=== PATIENT | female | born 1965 | race Caucasian/White ===

== ENCOUNTER → 2016-04-18 | Outpatient (CLI) | payer MEDICARE ==
[~2016-04-18] MED LIST: /WARF5TA PO; /WARF5TAB PO; ACET250C PO; ACET500C8 PO; ACID1CAP PO; ASPI81CH3 PO; CALC500T36 PO; CALC500T49 OR; CETI10TA PO; CETI10TA3 PO; CITRIZINE PO; CO Q100C10 PO; COUM1TAB17 PO; COUM7.5T PO; CYCL10TA PO; DIOV80TA3 PO; FERR325T3 PO; HYDR-3713 PO; LIDO1OIN2 TOP; LORA0.5T OR; LOSA25TA8 PO; LOVE0.4I2 SC; MAGN250T OR; MAGN500C PO; MELO7.5T6 PO; NATU400T PO; NORE0.353 PO; OXYC1TAB23 PO; POTA595T8 PO; POTA95TA PO; POTA99TA OR; PROG100C PO; PROP160C OR; PROP80TA PO; REQU0.5T PO; RIBO100C PO; SKEL800T5 OR; TIZA2CAP3 PO; TIZA4TAB OR; TRAM50TA2 PO; TRAZ50TA4 PO; ULTR50TA PO; VITA25TA3 OR; VITAMIN B COMPLE1 OR; VITATAB11 PO; VOLT1GEL2 TD; WARF1TAB OR; [UNRECOGNIZED DRUG - OTHER] PO; melatonin PO; propanolol PO; propranolol PO; vicodin PO; vitamin d3 PO
--- NOTE | 2016-05-11 00:26 | ECWPNPC ---
PATIENT NAME: KASIA CADE : 1965 GENDER: FEMALE VISIT DATE: 04/18/2016 DISCHARGE DATE: 04/18/16 1301 VISIT LOCKED DATE TIME: PHYSICIAN: MARBELLA MYERS RESOURCE: MARBELLA MYERS REASON FOR APPOINTMENT 1. FIBRO HISTORY OF PRESENT ILLNESS HISTORY OF PRESENT ILLNESS: PAIN THE PATIENT DESCRIBES THE PAIN... FALL RISK SCREENING: SCREENING :NO FALLS IN THE PAST YEAR TODAY'S VISIT: NOTES: S/P D/C ON 03/17/17. HAD SIGNIFICANT PAIN AFTER PROCEDURE. WAS GIVEN PERCOCET WHICH WAS VERY HELPFUL. HURTS EVERYWHERE. RATES OVERALL PAIN TODAY 8/10. DESCRIBES PAIN CONSTANT, ACHING, BURNING, SHARP, STABBING TENDER SORE AND SHOOTING. . CURRENT MEDICATIONS TAKING ACIDOPHILUS CAPSULE ORALLY DAILY TAKING VITAMIN E 1000 UNIT CAPSULE 1 CAPSULE ORALLY ONCE A DAY TAKING CETIRIZINE HCL 10 MG TABLET 1 TABLET NEEDED ORALLY ONCE A DAY TAKING CALCIUM 1250 MG TABLET 1 TABLET ORALLY ONCE A DAY TAKING LOSARTAN POTASSIUM 50 MG TABLET 1 TABLET ORALLY ONCE DAILY TAKING LIDOCAINE 5 % OINTMENT 1 APPLICATION TO AFFECTED AREA NEEDED EXTERNALLY EVERY 6 HOURS TAKING MAGNESIUM 500 MG TABLET 1 TABLET WITH A MEAL ORALLY BID TAKING POTASSIUM GLUCONATE 595 MG TABLET ORALLY ONCE A DAY TAKING WARFARIN SODIUM 5 MG TABLET 1 TABLET ORALLY 4 TIMES WEEKLY TAKING MELATONIN 10 MG CAPSULE 1 TABLET AT BEDTIME NEEDED WITH FOOD ORALLY ONCE A DAY TAKING PROPRANOLOL HCL 10 MG TABLET 1 TABLET ORALLY TWICE A DAY TAKING VOLTAREN 1 % GEL 2 GRAMS TRANSDERMAL DIRECTED TAKING PLAQUENIL 200 MG TABLET 1 TABLET WITH FOOD OR MILK ORALLY BID TAKING FISH OIL 1000 MG CAPSULE DELAYED RELEASE 1 CAPSULE ORALLY TWICE A DAY TAKING LYSINE 500 MG TABLET ORALLY ONCE DAILY TAKING ROPINIROLE HCL 0.5 MG TABLET 2 ORALLY QHS TAKING NEXIUM 20 MG CAPSULE DELAYED RELEASE 1 CAPSULE ORALLY ONCE A DAY TAKING MELOXICAM 7.5 MG TABLET 1 TABLET ORALLY ONCE A DAY TAKING GEORGE 500 MG CAPSULE ORALLY DAILY TAKING NORCO 5-325 MG TABLET 1 TABLET NEEDED ORALLY EVERY 6 HRS MDD = 3 TAKING FENTANYL 12 MCG/HR PATCH 72 HOUR 1 PATCH TO SKIN TRANSDERMAL EVERY 72 HOURS MDD=1 TAKING TRAZODONE HCL 100 MG TABLET 1 TABLET AT BEDTIME NEEDED ORALLY BEFORE BEDTIME TAKING TRAMADOL HCL 50 MG TABLET 1-2 TABLET NEEDED ORALLY EVERY 4 HOURS NEEDED MDD6 TAKING WARFARIN SODIUM 7.5 MG TABLET 1 TABLET ORALLY 3 TIMES A WEEK TAKING TURMERIC 450 MG CAPSULE ORALLY DAILY TAKING TART QUIROZ ADVANCED - CAPSULE ORALLY NOT-TAKING ACETYL L-CARNITINE 400 MG CAPSULE 1 CAPSULE ORALLY ONCE A DAY NOT-TAKING VITAMIN B-COMPLEX TABLET ORALLY DAILY MEDICATION LIST REVIEWED AND RECONCILED WITH THE PATIENT PAST MEDICAL HISTORY ANXIETY FIBROMYALGIA GERD VITAMIN D DEFICIENCY AORTIC REGURGITATION- POST VALVE REPLACEMENT MIGRAINE HEADACHES HTN ALLERGIES PENICILLIN (FOR ALLERGIES USE ONLY): RASH: ALLERGY KEPPRA: NAUSEA/VOMITING: ALLERGY SURGICAL HISTORY 05/2005 AORTIC VALVE REPLACEMENT-MECHANICAL 01/2010 LAPROSCOPY CHOLECYSTECTOMY D & C 2013 TONSILLECTOMY WISDOM TEETH REMOVAL CARPAL TUNNEL BOTH WRISTS COLONOSCOPY- NORMAL 2013 D & C 03/2016 SOCIAL HISTORY GENERAL: TOBACCO USE ARE YOU A:NONSMOKER LEARNING BARRIERS / SPECIAL NEEDS ORIENTED TO PLAN OF CARE: PATIENT, PAIN MANAGEMENT PATIENT, ORIENTED TO PLAN OF CARE: PATIENT, PAIN MANAGEMENT PATIENT. NEW PATIENT PAIN DIARY TODAY'S VISITNOTES FROM 0-10, WHAT LEVEL IS YOUR PAIN TODAY?0 PAIN CLINIC PFS, CLERGY, PUBLIC HEALTH REFERRALS PFS REFERRAL NEEDED?NO CLERGY REFERRAL NEEDED?NO PUBLIC HEALTH REFERRAL NEEDED?NO WAS THE PROVIDER NOTIFIED OF ANY PERTINENT INFO?NO PFS REFERRAL NEEDED?NO CLERGY REFERRAL NEEDED?NO PUBLIC HEALTH REFERRAL NEEDED?NO WAS THE PROVIDER NOTIFIED OF ANY PERTINENT INFO?NO HOSPITALIZATION/MAJOR DIAGNOSTIC PROCEDURE RELATED TO SURGERY AND CHILDBIRTH REVIEW OF SYSTEMS CONSTITUTIONAL: ANY CHANGE IN YOUR MEDICAL CONDITION? NO . CHILLS NO . FEVER NO . INFECTION: DO YOU HAVE NEW INFECTIONS? NO . DO YOU HAVE HISTORY OF MRSA? NO . MUSCULOSKELETAL: ANY NEW PATTERNS OF PAIN OR NUMBNESS? NO . GASTROENTEROLOGY: ANY NEW CHANGE IN BOWEL CONTROL? NO . GENITOURINARY: ANY NEW CHANGE IN BLADDER CONTROL? NO . IS THERE A CHANCE YOU COULD BE ? NO . HEMATOLOGY/LYMPH: DO YOU TAKE ANY BLOOD THINNERS? (FOR EXAMPLE- COUMADIN, PLAVIX, AGGRENOX, PLATEL, PRADAXA, OR XARELTO) YES . WHEN WAS YOUR LAST DOSE? DATE: TIME: . NEUROLOGY: HAVE YOU FALLEN IN THE PAST 6 MONTHS? NO . ANY NEW EXTREMITY NUMBNESS OR WEAKNESS? NO . CARDIOLOGY: DO YOU HAVE A PACEMAKER OR DEFIBRILLATOR? NO . CHEST PAIN NONE RECENT. FOLLOWS WITH CARDIOLOGY FOR VALVE REPLACEMENT . RESPIRATORY: HAVE YOU BEEN SICK IN THE PAST WEEK? NO . FEVER NO . FLU LIKE SYMPTOMS? NO . COUGH NO . INTEGUMENTARY: DO YOU HAVE ANY RASHES OR OPEN SORES? NO . ALLERGIC/IMMUNO: ARE YOU ALLERGIC TO SHELLFISH OR IV DYE? NO . ANY NEW ALLERGIES? NO . PSYCHIATRIC: DO YOU HAVE THOUGHTS OF HURTING YOURSELF OR SOMEONE ELSE? NO . ARE YOU ABUSED, NEGLECTED, OR IN AN UNSAFE ENVIRONMENT? NO . ENDOCRINOLOGY: ARE YOU DIABETIC? NO . OTHER: DO YOU NEED ANY PRESCRIPTIONS? NO . IF YES, PLEASE LIST: ____ . ANY NEW PROBLEMS WITH YOUR MEDICATIONS? NO . WHEN DID YOU LAST EAT? ____ . WHEN DID YOU LAST DRINK? ____ . WHAT DID YOU LAST DRINK? ____ . NAME OF PERSON DRIVING YOU HOME? ____ . DO YOU HAVE ANY OTHER QUESTIONS OR CONCERNS NO . REVIEWED BY: PROVIDER: MARBELLA GUERRERO . VITAL SIGNS WT 145 LBS, HT 5'4", BMI 24.89 INDEX, BP 90/63 MM HG, HR 60 /MIN, RR 16 /MIN, TEMP 98.0 F, OXYGEN SAT % 98%, NA INITIALS SC 12:00, REVIEWED BY: LSRN IS AWARE OF PT"S BP. EXAMINATION GENERAL EXAMINATION: PSYCHALERT , ORIENTED X 3 , APPROPRIATE MOOD AND AFFECT . HEART:VALVE CLICK. , HEART RATE REGULAR. MUSCULOSKELETAL:MUSCLE STRENGTH TESTING 5/5 BILATERAL UPPER AND LOWER EXTREMITIES, TRIGGER POINTS:, ELICITED WITH PALPATION OVER CERVICAL SPINOUS PROCESSES AND ACROSS THE TRAPEZIUS MUSCLES BILATERALLY. RESTRICTION OF ROM IS NOTED. . ASSESSMENTS FIBROMYALGIA - M79.7 (PRIMARY) CHRONICALLY ON OPIATE THERAPY - Z79.899 TREATMENT FIBROMYALGIA STOP NORCO TABLET, 5-325 MG, 1 TABLET NEEDED, ORALLY, EVERY 6 HRS MDD = 3 START PERCOCET TABLET, 5-325 MG, 1 TABLET NEEDED, ORALLY, EVERY 6-8 HRS PRN PAIN MDD=3, 30 DAY(S), 90, REFILLS 0 NOTES: UTOX TODAY. PROCEDURE CODES FA211 ESTABILISHED PATIENT [facility] CHARGE FOLLOW UP 7 WEEKS ELECTRONICALLY SIGNED BY PATTI TEJEDA ON 05/10/2016 AT 12:35 PM EST DISCLAIMER : THIS IS A VISIT SUMMARY EXTRACTED FROM THE [employer] CHART. IT IS NOT A COPY OF THE [employer] PROGRESS NOTE. MTDD
== END ==
LOC: M PAIN 11:40
PROVIDERS: ATTEND Nurse Practitioner Family
DX: Z09 Encounter for follow-up examination after completed treatment for conditions other than malignant neoplasm (principal); G89.29 Other chronic pain; M79.7 Fibromyalgia; K21.9 Gastro-esophageal reflux disease without esophagitis; E55.9 Vitamin D deficiency, unspecified; G43.909 Migraine, unspecified, not intractable, without status migrainosus; I10 Essential (primary) hypertension; F41.9 Anxiety disorder, unspecified; Z88.0 Allergy status to penicillin; Z88.8 Allergy status to other drugs, medicaments and biological substances; Z79.01 Long term (current) use of anticoagulants; Z79.891 Long term (current) use of opiate analgesic; Z79.899 Other long term (current) drug therapy; Z95.2 Presence of prosthetic heart valve

== ENCOUNTER → 2016-06-15 | Outpatient (CLI) | payer MEDICARE ==
--- NOTE | 2016-06-20 00:11 | ECWPNPC ---
PATIENT NAME: KASIA CADE : 1965 GENDER: FEMALE VISIT DATE: 06/15/2016 DISCHARGE DATE: 06/15/16 1207 VISIT LOCKED DATE TIME: PHYSICIAN: MARBELLA MYERS RESOURCE: MARBELLA MYERS REASON FOR APPOINTMENT 1. FOLLOWUP-CHRONIC PAIN HISTORY OF PRESENT ILLNESS HISTORY OF PRESENT ILLNESS: PAIN THE PATIENT DESCRIBES THE PAIN... FALL RISK SCREENING: SCREENING :NO FALLS IN THE PAST YEAR TODAY'S VISIT: NOTES: RATES PAIN 8-9/10. DESCRIBES PAIN CONSTANT, ACHING, BURNING TENDER, THROBBING AND SORE. HAS NEW AREA OF PAIN OVER EARS. HAS BEEN EXPERIENCING PERSISTANT MIGRAINES . CURRENT MEDICATIONS TAKING ACIDOPHILUS CAPSULE ORALLY DAILY TAKING VITAMIN E 1000 UNIT CAPSULE 1 CAPSULE ORALLY ONCE A DAY TAKING CETIRIZINE HCL 10 MG TABLET 1 TABLET NEEDED ORALLY ONCE A DAY TAKING CALCIUM 1250 MG TABLET 1 TABLET ORALLY ONCE A DAY TAKING LOSARTAN POTASSIUM 50 MG TABLET 1 TABLET ORALLY ONCE DAILY TAKING LIDOCAINE 5 % OINTMENT 1 APPLICATION TO AFFECTED AREA NEEDED EXTERNALLY EVERY 6 HOURS TAKING MAGNESIUM 500 MG TABLET 1 TABLET WITH A MEAL ORALLY BID TAKING POTASSIUM GLUCONATE 595 MG TABLET ORALLY ONCE A DAY TAKING WARFARIN SODIUM 5 MG TABLET 1 TABLET ORALLY 4 TIMES WEEKLY TAKING MELATONIN 10 MG CAPSULE 1 TABLET AT BEDTIME NEEDED WITH FOOD ORALLY ONCE A DAY TAKING PROPRANOLOL HCL 10 MG TABLET 1 TABLET ORALLY TWICE A DAY TAKING VOLTAREN 1 % GEL 2 GRAMS TRANSDERMAL DIRECTED TAKING FISH OIL 1000 MG CAPSULE DELAYED RELEASE 1 CAPSULE ORALLY TWICE A DAY TAKING LYSINE 500 MG TABLET ORALLY ONCE DAILY TAKING ROPINIROLE HCL 0.5 MG TABLET 2 ORALLY QHS TAKING NEXIUM 20 MG CAPSULE DELAYED RELEASE 1 CAPSULE ORALLY ONCE A DAY TAKING MELOXICAM 7.5 MG TABLET 1 TABLET ORALLY ONCE A DAY TAKING GEORGE 500 MG CAPSULE ORALLY DAILY TAKING TRAZODONE HCL 100 MG TABLET 1 TABLET AT BEDTIME NEEDED ORALLY BEFORE BEDTIME TAKING TRAMADOL HCL 50 MG TABLET 1-2 TABLET NEEDED ORALLY EVERY 4 HOURS NEEDED MDD6 TAKING WARFARIN SODIUM 7.5 MG TABLET 1 TABLET ORALLY 3 TIMES A WEEK TAKING TURMERIC 450 MG CAPSULE ORALLY DAILY TAKING TART QUIROZ ADVANCED - CAPSULE ORALLY TAKING PERCOCET 5-325 MG TABLET 1 TABLET NEEDED ORALLY EVERY 6-8 HRS PRN PAIN MDD=3 TAKING FENTANYL 12 MCG/HR PATCH 72 HOUR 1 PATCH TO SKIN TRANSDERMAL EVERY 72 HOURS MDD=1 NOT-TAKING ACETYL L-CARNITINE 400 MG CAPSULE 1 CAPSULE ORALLY ONCE A DAY NOT-TAKING VITAMIN B-COMPLEX TABLET ORALLY DAILY DISCONTINUED DOXYCYCLINE MONOHYDRATE 100 MG TABLET 1 TABLET ORALLY EVERY 12 HRS MEDICATION LIST REVIEWED AND RECONCILED WITH THE PATIENT PAST MEDICAL HISTORY ANXIETY FIBROMYALGIA GERD VITAMIN D DEFICIENCY AORTIC REGURGITATION- POST VALVE REPLACEMENT MIGRAINE HEADACHES HTN ALLERGIES PENICILLIN (FOR ALLERGIES USE ONLY): RASH: ALLERGY KEPPRA: NAUSEA/VOMITING: ALLERGY SOCIAL HISTORY GENERAL: TOBACCO USE ARE YOU A:NONSMOKER LEARNING BARRIERS / SPECIAL NEEDS ORIENTED TO PLAN OF CARE: PATIENT, PAIN MANAGEMENT PATIENT, ORIENTED TO PLAN OF CARE: PATIENT, PAIN MANAGEMENT PATIENT. NEW PATIENT PAIN DIARY TODAY'S VISITNOTES FROM 0-10, WHAT LEVEL IS YOUR PAIN TODAY?0 PAIN CLINIC PFS, CLERGY, PUBLIC HEALTH REFERRALS PFS REFERRAL NEEDED?NO CLERGY REFERRAL NEEDED?NO PUBLIC HEALTH REFERRAL NEEDED?NO WAS THE PROVIDER NOTIFIED OF ANY PERTINENT INFO?NO PFS REFERRAL NEEDED?NO CLERGY REFERRAL NEEDED?NO PUBLIC HEALTH REFERRAL NEEDED?NO WAS THE PROVIDER NOTIFIED OF ANY PERTINENT INFO?NO REVIEW OF SYSTEMS CONSTITUTIONAL: ANY CHANGE IN YOUR MEDICAL CONDITION? NO . CHILLS NO . FEVER NO . INFECTION: DO YOU HAVE NEW INFECTIONS? NO . DO YOU HAVE HISTORY OF MRSA? NO . MUSCULOSKELETAL: ANY NEW PATTERNS OF PAIN OR NUMBNESS? NO . GASTROENTEROLOGY: ANY NEW CHANGE IN BOWEL CONTROL? NO . GENITOURINARY: ANY NEW CHANGE IN BLADDER CONTROL? NO . IS THERE A CHANCE YOU COULD BE ? NO . HEMATOLOGY/LYMPH: DO YOU TAKE ANY BLOOD THINNERS? (FOR EXAMPLE- COUMADIN, PLAVIX, AGGRENOX, PLATEL, PRADAXA, OR XARELTO) YES, COUMADIN 5MG . WHEN WAS YOUR LAST DOSE? DATE: TIME: [id number] . NEUROLOGY: HAVE YOU FALLEN IN THE PAST 6 MONTHS? NO . ANY NEW EXTREMITY NUMBNESS OR WEAKNESS? NO . CARDIOLOGY: DO YOU HAVE A PACEMAKER OR DEFIBRILLATOR? NO . RESPIRATORY: HAVE YOU BEEN SICK IN THE PAST WEEK? NO - DID HAVE RECENT BRONCHITIS . FEVER NO . FLU LIKE SYMPTOMS? NO . COUGH NO . INTEGUMENTARY: DO YOU HAVE ANY RASHES OR OPEN SORES? NO . ALLERGIC/IMMUNO: ARE YOU ALLERGIC TO SHELLFISH OR IV DYE? NO . ANY NEW ALLERGIES? NO . PSYCHIATRIC: DO YOU HAVE THOUGHTS OF HURTING YOURSELF OR SOMEONE ELSE? NO . ARE YOU ABUSED, NEGLECTED, OR IN AN UNSAFE ENVIRONMENT? NO . ENDOCRINOLOGY: ARE YOU DIABETIC? NO . OTHER: DO YOU NEED ANY PRESCRIPTIONS? NO . IF YES, PLEASE LIST: ____ . ANY NEW PROBLEMS WITH YOUR MEDICATIONS? NO . WHEN DID YOU LAST EAT? ____ . WHEN DID YOU LAST DRINK? ____ . WHAT DID YOU LAST DRINK? ____ . NAME OF PERSON DRIVING YOU HOME? ____ . DO YOU HAVE ANY OTHER QUESTIONS OR CONCERNS NO . REVIEWED BY: PROVIDER: MARBELLA GUERRERO . VITAL SIGNS WT 145 LBS, HT 5'4", BMI 24.89 INDEX, BP 120/72 MM HG, HR 66 /MIN, RR 16 /MIN, TEMP 97.9 F, OXYGEN SAT % 97%, NA INITIALS SC 11:18, REVIEWED BY: CM. EXAMINATION GENERAL EXAMINATION: PSYCHALERT , ORIENTED X 3 , APPROPRIATE MOOD AND AFFECT . HEART:VALVE CLICK. , HEART RATE REGULAR. MUSCULOSKELETAL:MUSCLE STRENGTH TESTING 5/5 BILATERAL UPPER AND LOWER EXTREMITIES, TRIGGER POINTS:, ELICITED WITH PALPATION OVER CERVICAL SPINOUS PROCESSES AND ACROSS THE TRAPEZIUS MUSCLES BILATERALLY. RESTRICTION OF ROM IS NOTED. TENDER POINTS ELICITED ABOVE AND BELOW THE WAIST, BOTH SIDES OF THE BODY, CONSISTANT WITH FIBROMYALGIA. ASSESSMENTS FIBROMYALGIA - M79.7 (PRIMARY) MYALGIA - M79.1 TREATMENT FIBROMYALGIA REFILL PERCOCET TABLET, 5-325 MG, 1 TABLET NEEDED, ORALLY, EVERY 6-8 HRS PRN PAIN MDD=3, 30 DAY(S), 90, REFILLS 0 REFILL FENTANYL PATCH 72 HOUR, 12 MCG/HR, 1 PATCH TO SKIN, TRANSDERMAL, EVERY 72 HOURS MDD=1, 30 DAY(S), 10, REFILLS 0 NOTES: CONTINUE CURRENT MEDS. CONTINUE HEAT, STRETCHES AND WALKING TOLERATED. CLINICAL NOTES: ISTOP REGISTRY REVIEWED AND DEMNOSTRATES COMPLLIANCE. BRINGS IN MEDICATIONS WHICH IS APPROPRIATE FOR WHAT WAS DISPENSED. RECENT URINE TOXICOLOGY REVIEWED. NO UNAUTHORIZED MEDICATIONS. NO ILLICIT SUBSTANCES AND PRESCRIBED MEDICATIONS WERE PRESENT. PROCEDURE CODES FA211 ESTABILISHED PATIENT [facility] CHARGE Z2712 NO DOCUMENTATION OF PAIN ASSESSMENT G4710 PAIN ASSESS POS TOOL F/U PLAN DOC 3016F PT SCRND UNHLTHY OH USE 1124F ACP DISCUSS-NO DSCNMKR DOCD G3509 DOC PAIN ASSESS NO DOC F/U PLAN RNS 1036F TOBACCO NON-USER G8427 DOC MEDS VERIFIED W/PT OR RE G8420 BMI<30 AND >=22 CALC & DOCU 3288F FALL RISK ASSESSMENT DOCD DISPOSITION & COMMUNICATION FOLLOW UP 3 MONTHS ELECTRONICALLY SIGNED BY PATTI TEJEDA ON 06/19/2016 AT 09:57 AM EDT DISCLAIMER : THIS IS A VISIT SUMMARY EXTRACTED FROM THE [employer] CHART. IT IS NOT A COPY OF THE [employer] PROGRESS NOTE. MTDD
== END ==
LOC: M PAIN 11:00
PROVIDERS: ATTEND Nurse Practitioner Family
DX: Z09 Encounter for follow-up examination after completed treatment for conditions other than malignant neoplasm (principal); G89.29 Other chronic pain; M79.7 Fibromyalgia; I10 Essential (primary) hypertension; F41.9 Anxiety disorder, unspecified; K21.9 Gastro-esophageal reflux disease without esophagitis; E55.9 Vitamin D deficiency, unspecified; G43.909 Migraine, unspecified, not intractable, without status migrainosus; Z88.0 Allergy status to penicillin; Z88.8 Allergy status to other drugs, medicaments and biological substances; Z79.01 Long term (current) use of anticoagulants; Z79.891 Long term (current) use of opiate analgesic; Z79.899 Other long term (current) drug therapy; Z95.2 Presence of prosthetic heart valve

== ENCOUNTER → 2016-09-15 | Outpatient (CLI) | payer MEDICARE, MEDICAID ==
[~2016-09-15] MED LIST changes: +COUM2.5T17 PO; +ESOM0.1C PO; +FISH1000 PO; +FOLI1TAB4 PO; +GING500C3 PO; +LYSI500T PO; -MELO7.5T6 PO; +MELO7.5T7 PO; +METH2.5TA PO; +ONDA4TAB6 PO; +PROP10TA56 PO; -REQU0.5T PO; +REQU1TAB15 PO; +TRAZ50TA11 PO; -TRAZ50TA4 PO; +TURM500C3 PO; +VITA500T3 PO
--- NOTE | 2016-09-30 01:02 | ECWPNPC ---
PATIENT NAME: KASIA CADE : 1965 GENDER: FEMALE VISIT DATE: 09/15/2016 DISCHARGE DATE: 09/15/16 1226 VISIT LOCKED DATE TIME: PHYSICIAN: MARBELLA MYERS RESOURCE: MARBELLA MYERS REASON FOR APPOINTMENT 1. FOLLOWUP-CHRONIC PAIN HISTORY OF PRESENT ILLNESS HISTORY OF PRESENT ILLNESS: PAIN THE PATIENT DESCRIBES THE PAIN... THE PATIENT DESCRIBES THE PAIN... PAIN THE PATIENT DESCRIBES THE PAIN... THE PATIENT DESCRIBES THE PAIN... FALL RISK SCREENING: SCREENING :NO FALLS IN THE PAST YEAR :NO FALLS IN THE PAST YEAR SCREENING :NO FALLS IN THE PAST YEAR :NO FALLS IN THE PAST YEAR TODAY'S VISIT: NOTES: RATES PAIN TODAY 7.5/10. 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 IS WALKING ABOUT 2 M/DAY BUT NOT WORK DAYS. HAS STARTED ON METHOTREXATE FOR RA/LUPUS. 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 HAS BEEN HAVING SWELLING IN JOINTS OF HANDS, BEHIND KNEES AND IN GROIN. . CURRENT MEDICATIONS TAKING ACIDOPHILUS CAPSULE ORALLY DAILY TAKING VITAMIN E 400 UNIT CAPSULE 1 CAPSULE ORALLY ONCE A DAY TAKING CETIRIZINE HCL 10 MG TABLET 1 TABLET NEEDED ORALLY ONCE A DAY TAKING CALCIUM 1250 MG TABLET 1 TABLET ORALLY ONCE A DAY TAKING LOSARTAN POTASSIUM 50 MG TABLET 1 TABLET ORALLY ONCE DAILY TAKING LIDOCAINE 5 % OINTMENT 1 APPLICATION TO AFFECTED AREA NEEDED EXTERNALLY EVERY 6 HOURS TAKING MAGNESIUM 400 MG TABLET 1 TABLET WITH A MEAL ORALLY BID TAKING WARFARIN SODIUM 5 MG TABLET 1 TABLET ORALLY ONCE A DAY TAKING MELATONIN 10 MG CAPSULE 1 TABLET AT BEDTIME NEEDED WITH FOOD ORALLY ONCE A DAY TAKING PROPRANOLOL HCL 10 MG TABLET 1 TABLET ORALLY TWICE A DAY TAKING VOLTAREN 1 % GEL 2 GRAMS TRANSDERMAL DIRECTED TAKING FISH OIL 1000 MG CAPSULE DELAYED RELEASE 1 CAPSULE ORALLY TWICE A DAY TAKING LYSINE 500 MG TABLET ORALLY TWICE DAILY TAKING NEXIUM 20 MG CAPSULE DELAYED RELEASE 1 CAPSULE ORALLY ONCE A DAY TAKING MELOXICAM 15 MG TABLET 1 TABLET ORALLY ONCE A DAY TAKING GEORGE 500 MG CAPSULE ORALLY DAILY TAKING TRAZODONE HCL 100 MG TABLET 1/2 OR 1 TABLET AT BEDTIME NEEDED ORALLY BEFORE BEDTIME TAKING TURMERIC 450 MG CAPSULE ORALLY TWICE DAILY TAKING TART QUIROZ ADVANCED - CAPSULE ORALLY TWICE A DAY TAKING ROPINIROLE HCL 0.5 MG TABLET 2 ORALLY QHS TAKING FENTANYL 12 MCG/HR PATCH 72 HOUR 1 PATCH TO SKIN TRANSDERMAL EVERY 72 HOURS MDD=1 TAKING PERCOCET 5-325 MG TABLET 1 TABLET NEEDED ORALLY EVERY 6-8 HRS PRN PAIN MDD=3 TAKING TRAMADOL HCL 50 MG TABLET 1-2 TABLET NEEDED ORALLY EVERY 4 HOURS NEEDED MDD6 TAKING POTASSIUM 1 TAB 99 MG ORAL DAILY TAKING EVENING PRIMROSE OIL 500 MG CAPSULE ORALLY TWICE A DAY TAKING FOLIC ACID 1 MG TABLET 1 TABLET ORALLY ONCE A DAY TAKING VITAMIN D3 ULTRA STRENGTH 5000 UNIT CAPSULE 1 CAPSULE ORALLY ONCE A DAY TAKING VITAMIN B-6 100 MG TABLET 1 TABLET ORALLY TWICE A DAY TAKING METHOTREXATE SODIUM 2.5 MG TABLET T TABLETS ORALLY EVERY SUNDAY NOT-TAKING POTASSIUM GLUCONATE 595 MG TABLET ORALLY ONCE A DAY NOT-TAKING WARFARIN SODIUM 7.5 MG TABLET 1 TABLET ORALLY 3 TIMES A WEEK NOT-TAKING ACETYL L-CARNITINE 400 MG CAPSULE 1 CAPSULE ORALLY ONCE A DAY NOT-TAKING VITAMIN B-COMPLEX TABLET ORALLY DAILY MEDICATION LIST REVIEWED AND RECONCILED WITH THE PATIENT PAST MEDICAL HISTORY ANXIETY FIBROMYALGIA GERD VITAMIN D DEFICIENCY AORTIC REGURGITATION- POST VALVE REPLACEMENT MIGRAINE HEADACHES HTN RHEUMATOID ARTHRITIS LUPUS ALLERGIES PENICILLIN (FOR ALLERGIES USE ONLY): RASH: ALLERGY KEPPRA: NAUSEA/VOMITING: ALLERGY SURGICAL HISTORY 05/2005 AORTIC VALVE REPLACEMENT-MECHANICAL 01/2010 LAPROSCOPY CHOLECYSTECTOMY D & C 2013 TONSILLECTOMY WISDOM TEETH REMOVAL CARPAL TUNNEL BOTH WRISTS COLONOSCOPY- NORMAL 2013 D & C 03/2016 SOCIAL HISTORY GENERAL: TOBACCO USE ARE YOU A:NONSMOKER LEARNING BARRIERS / SPECIAL NEEDS ORIENTED TO PLAN OF CARE: PATIENT, PAIN MANAGEMENT PATIENT, ORIENTED TO PLAN OF CARE: PATIENT, PAIN MANAGEMENT PATIENT. NEW PATIENT PAIN DIARY TODAY'S VISITNOTES FROM 0-10, WHAT LEVEL IS YOUR PAIN TODAY?0 PAIN CLINIC PFS, CLERGY, PUBLIC HEALTH REFERRALS PFS REFERRAL NEEDED?NO CLERGY REFERRAL NEEDED?NO PUBLIC HEALTH REFERRAL NEEDED?NO WAS THE PROVIDER NOTIFIED OF ANY PERTINENT INFO?NO PFS REFERRAL NEEDED?NO CLERGY REFERRAL NEEDED?NO PUBLIC HEALTH REFERRAL NEEDED?NO WAS THE PROVIDER NOTIFIED OF ANY PERTINENT INFO?NO HOSPITALIZATION/MAJOR DIAGNOSTIC PROCEDURE RELATED TO SURGERY AND CHILDBIRTH REVIEW OF SYSTEMS REVIEWED BY: PROVIDER: MARBELLA GUERRERO . CONSTITUTIONAL: ANY CHANGE IN YOUR MEDICAL CONDITION? YES, RA, LUPUS, NO . CHILLS NO, NO . FEVER NO, NO . INFECTION: DO YOU HAVE NEW INFECTIONS? NO, NO . DO YOU HAVE HISTORY OF MRSA? NO, NO . MUSCULOSKELETAL: ANY NEW PATTERNS OF PAIN OR NUMBNESS? NO, NO . GASTROENTEROLOGY: ANY NEW CHANGE IN BOWEL CONTROL? NO, NO . GENITOURINARY: ANY NEW CHANGE IN BLADDER CONTROL? NO, NO . IS THERE A CHANCE YOU COULD BE ? NO, NO . HEMATOLOGY/LYMPH: DO YOU TAKE ANY BLOOD THINNERS? (FOR EXAMPLE- COUMADIN, PLAVIX, AGGRENOX, PLATEL, PRADAXA, OR XARELTO) YES, COUMADIN, NO . WHEN WAS YOUR LAST DOSE? DATE: TIME: 09/14/16 9PM, DATE: TIME: . NEUROLOGY: HAVE YOU FALLEN IN THE PAST 6 MONTHS? NO, NO . ANY NEW EXTREMITY NUMBNESS OR WEAKNESS? NO, NO . CARDIOLOGY: DO YOU HAVE A PACEMAKER OR DEFIBRILLATOR? MONITOR . RESPIRATORY: HAVE YOU BEEN SICK IN THE PAST WEEK? NO, NO . FEVER NO, NO . FLU LIKE SYMPTOMS? NO, NO . COUGH NO, NO . INTEGUMENTARY: DO YOU HAVE ANY RASHES OR OPEN SORES? NO, NO . ALLERGIC/IMMUNO: ARE YOU ALLERGIC TO SHELLFISH OR IV DYE? NO, NO . ANY NEW ALLERGIES? NO, NO . PSYCHIATRIC: DO YOU HAVE THOUGHTS OF HURTING YOURSELF OR SOMEONE ELSE? NO, NO . ARE YOU ABUSED, NEGLECTED, OR IN AN UNSAFE ENVIRONMENT? NO, NO . ENDOCRINOLOGY: ARE YOU DIABETIC? NO, NO . OTHER: DO YOU NEED ANY PRESCRIPTIONS? YES, NO . IF YES, PLEASE LIST: FENTANYL AND OXYCODONES, ____ . ANY NEW PROBLEMS WITH YOUR MEDICATIONS? NO, NO . WHEN DID YOU LAST EAT? ____, ____ . WHEN DID YOU LAST DRINK? ____, ____ . WHAT DID YOU LAST DRINK? ____, ____ . NAME OF PERSON DRIVING YOU HOME? ____, ____ . DO YOU HAVE ANY OTHER QUESTIONS OR CONCERNS NO, NO . VITAL SIGNS WT 145 LBS, HT 5'4", BMI 24.89 INDEX, BP 120/82 MM HG, HR 53 /MIN, RR 16 /MIN, TEMP 99.1 F, OXYGEN SAT % 100%, NA INITIALS AW 1139, REVIEWED BY: [id number]. EXAMINATION GENERAL EXAMINATION: PSYCHALERT , ORIENTED X 3 , APPROPRIATE MOOD AND AFFECT . HEART:VALVE CLICK. , HEART RATE REGULAR. MUSCULOSKELETAL:MUSCLE STRENGTH TESTING 5/5 BILATERAL UPPER AND LOWER EXTREMITIES, TRIGGER POINTS:, ELICITED WITH PALPATION OVER CERVICAL SPINOUS PROCESSES AND ACROSS THE TRAPEZIUS MUSCLES BILATERALLY. RESTRICTION OF ROM IS NOTED. TENDER POINTS ELICITED ABOVE AND BELOW THE WAIST, BOTH SIDES OF THE BODY, CONSISTANT WITH FIBROMYALGIA. ASSESSMENTS FIBROMYALGIA - M79.7 (PRIMARY) RHEUMATOID ARTHRITIS OF MULTIPLE SITES WITH NEGATIVE RHEUMATOID FACTOR - M06.09 CHRONIC PRESCRIPTION OPIATE USE - Z79.891 TREATMENT FIBROMYALGIA REFILL FENTANYL PATCH 72 HOUR, 12 MCG/HR, 1 PATCH TO SKIN, TRANSDERMAL, EVERY 72 HOURS MDD=1, 30 DAY(S), 10, REFILLS 0 REFILL PERCOCET TABLET, 5-325 MG, 1 TABLET NEEDED, ORALLY, EVERY 6-8 HRS PRN PAIN MDD=3, 30 DAY(S), 90, REFILLS 0 CLINICAL NOTES: ISTOP REGISTRY REVIEWED AND DEMNOSTRATES COMPLLIANCE. BRINGS IN MEDICATIONS WHICH IS APPROPRIATE FOR WHAT WAS DISPENSED. RECENT URINE TOXICOLOGY REVIEWED. NO UNAUTHORIZED MEDICATIONS. NO ILLICIT SUBSTANCES AND PRESCRIBED MEDICATIONS WERE PRESENT. PROCEDURE CODES FA211 ESTABILISHED PATIENT [facility] FAC[facility] CHARGE DISPOSITION & COMMUNICATION FOLLOW UP 2 MONTHS (REASON: FIBRO/GENERALIZED PAIN) ELECTRONICALLY SIGNED BY PATTI TEJEDA ON 09/29/2016 AT 04:45 PM EDT DISCLAIMER : THIS IS A VISIT SUMMARY EXTRACTED FROM THE [employer] CHART. IT IS NOT A COPY OF THE [employer] PROGRESS NOTE. YAMILET
== END ==
LOC: M PAIN 11:00
PROVIDERS: ATTEND Nurse Practitioner Family
DX: M79.7 Fibromyalgia (principal); M06.09 Rheumatoid arthritis without rheumatoid factor, multiple sites; Z79.891 Long term (current) use of opiate analgesic; Z79.899 Other long term (current) drug therapy; Z79.01 Long term (current) use of anticoagulants; F41.9 Anxiety disorder, unspecified; K21.9 Gastro-esophageal reflux disease without esophagitis; I35.1 Nonrheumatic aortic (valve) insufficiency; G43.909 Migraine, unspecified, not intractable, without status migrainosus; E55.9 Vitamin D deficiency, unspecified; M32.9 Systemic lupus erythematosus, unspecified; Z95.2 Presence of prosthetic heart valve; Z88.0 Allergy status to penicillin; Z88.8 Allergy status to other drugs, medicaments and biological substances

== ENCOUNTER → 2016-12-05 | Outpatient (CLI) | payer MEDICARE, MEDICAID ==
--- NOTE | 2016-12-05 11:18 | REP ---
Clinical: Pelvic pain and abnormal uterine bleeding . Technique: Transabdominal pelvic ultrasound followed by transvaginal examination for better evaluation of the endometrium and adnexa with color Doppler evaluation of the ovaries. Findings: Bladder is unremarkable and measures 9.2 x 6.4 x 8.0 cm . Normal anteverted uterus measures 8.1 x 4.3 x 5.2 cm . The endometrial complex measures 9.2 mm thickness. No discrete uterine or endometrial abnormalities are appreciated. Right ovary is normal in appearance and vascularity without evidence for torsion. Right ovary measures 2.1 x 1.5 x 2.2 cm ; R I = 0.49. Left ovary is not visualized. Right paraovarian cyst measures 2.3 cm maximal diameter. No pelvic fluid or adnexal mass lesion. . Impression: 1. 2.3 cm right paraovarian cyst. 2. Left ovary not visualized. 3. Normal uterus and right ovary. No pelvic fluid or adnexal mass. Signed by Elbert Reeves MD 12/05/2016 11:09 A
== END ==
LOC: M RAD 10:08
PROVIDERS: ATTEND Obstetrics & Gynecology
DX: N92.6 Irregular menstruation, unspecified (principal)

== ENCOUNTER 2016-12-27 11:41 | Day surgery (SDC) | payer MEDICARE, MEDICAID ==
[~2016-12-27] VITALS: Ht 160 cm; Wt 65.3 kg
[~2016-12-27 11:41] MED LIST changes: -ESOM0.1C PO; -ONDA4TAB6 PO
[2016-12-27] MEDS ORDERED: LR 1,000 ML IV ONE (11:45)
[2016-12-27 12:02] LABS: MEAN CORPUSCULAR HEMOGLOBIN 29.1 pg (27.0-33.0); MEAN CORPUSCULAR HGB CONC 32.6 g/dl (32.0-36.5); MEAN CORPUSCULAR VOLUME 89.3 fl (80.0-96.0); WHITE BLOOD COUNT 5.6 10^3/uL (4.0-10.0)
[2016-12-27 12:17] LABS: INR 0.93
[2016-12-27] MEDS ORDERED: ESOM0.1C PO (12:35)
[2016-12-27] MEDS ORDERED: diazePAM 5 MG TAB As Ordered ONE (13:26)
[2016-12-27] MEDS ORDERED: diazePAM 5 MG TAB PO PRN (13:30)
[2016-12-27] MEDS ORDERED: METHYLENE BLUE 0.5% (5MG/ML) 10 ML AMP (PROVAYBLUE)(Q9968 PER 1MG) As Ordered ONE (16:13)
[2016-12-27] MEDS ORDERED: BUPIVACAINE HCL 0.25% 30 ML VIAL As Ordered ONE (16:13)
[2016-12-27] MEDS ORDERED: HYDROmorphone HCL 2 MG/ML 1ML VIAL (J1170) As Ordered ONE (17:06)
[2016-12-27] MEDS ORDERED: fentaNYL 100 MCG/2 ML INJECTION (J3010) As Ordered ONE ×3 (17:06→20:28)
[2016-12-27] MEDS ORDERED: dexameTHASONE 4 MG/ML 1ML VIAL (J1100) As Ordered ONE (17:06)
[2016-12-27] MEDS ORDERED: MIDAZOLAM INJ 2 MG/2 ML VIAL (J2250) As Ordered ONE (17:06)
[2016-12-27] MEDS ORDERED: ROCURONIUM BROMIDE 50 MG/5 ML VIAL/SYRINGE As Ordered ONE (17:07)
[2016-12-27] MEDS ORDERED: PROPOFOL 200 MG/20 ML VIAL As Ordered ONE (17:07)
[2016-12-27] MEDS ORDERED: METOCLOPRAMIDE INJ 10MG/2ML VIAL (J2765) As Ordered ONE (17:08)
[2016-12-27] MEDS ORDERED: LIDOCAINE 2% INJ 100 MG/5 ML SDV (FOR ANES.) As Ordered ONE (17:09)
[2016-12-27] MEDS ORDERED: NEOSTIGMINE 1MG/ML 5 ML SYRINGE (J2710) As Ordered ONE (17:09)
[2016-12-27] MEDS ORDERED: ONDANSETRON 4MG/2ML VIAL (J2405) As Ordered ONE (17:10)
[2016-12-27] MEDS ORDERED: GLYCOPYRROLATE INJ 0.2 MG/ML 2 ML VIAL As Ordered ONE (17:10)
[2016-12-27] MEDS ORDERED: DESFLURANE 240 ML INHALANT As Ordered ONE (18:19)
[2016-12-27] MEDS ORDERED: LR 1,000 ML IV SCH ×2 (20:22→20:45)
[2016-12-27] MEDS ORDERED: PROMETHAZINE INJ 25 MG/ML VIAL (J2550) IV PRN (20:30)
[2016-12-27] MEDS ORDERED: MEPERIDINE INJ 25 MG/ML VIAL (J2175) As Ordered ONE (20:30)
[2016-12-27] MEDS ORDERED: PERCOCET 5MG/325MG TAB PO PRN ×2 (20:30→20:45)
[2016-12-27] MEDS: fentaNYL 100 MCG/2 ML INJECTION (J3010) IV PRN ×4 (20:30→20:50)
[2016-12-27] MEDS ORDERED: ONDANSETRON 4MG/2ML VIAL (J2405) IV PRN ×2 (20:30→20:45)
[2016-12-27] MEDS: MEPERIDINE INJ 25 MG/ML VIAL (J2175) IV PRN ×2 (20:32→20:37)
[2016-12-27] MEDS ORDERED: METOCLOPRAMIDE INJ 10MG/2ML VIAL (J2765) IV PRN (20:45)
[2016-12-27 21:30] VITALS: BP 127/73
[2016-12-27 21:57] LABS: CREATININE FOR GFR 0.73 MG/DL (0.55-1.02); GLOMERULAR FILTRATION RATE > 60.0 (>51)
[2016-12-27 22:00] VITALS: BP 116/68
[2016-12-27] MEDS: KETOROLAC 30 MG/ML VIAL (J1885) IV SCH (22:52)
[2016-12-27 23:00] VITALS: BP 121/73
[2016-12-28] VITALS: BP 111/67
[2016-12-28 01:00] VITALS: BP 112/67
[2016-12-28] MEDS: PERCOCET 5MG/325MG TAB PO PRN ×2 (01:07→05:09)
[2016-12-28 02:00] VITALS: BP 102/57
[2016-12-28] MEDS: KETOROLAC 30 MG/ML VIAL (J1885) IV SCH ×2 (03:56→09:18)
[2016-12-28 04:00] VITALS: BP 103/63
[2016-12-28 07:01] LABS: BASO % 0.1 % (0.0-1.0); IMMATURE GRANULOCYTE % 0.6 % (0-0); LYMPH # 1.1 10^3/uL (1.5-4.5); LYMPH % 11.7 % (24.0-44.0); MEAN CORPUSCULAR HEMOGLOBIN 29.1 pg (27.0-33.0); MEAN CORPUSCULAR HGB CONC 32.6 g/dl (32.0-36.5); MEAN CORPUSCULAR VOLUME 89.4 fl (80.0-96.0); MONO # 0.5 10^3/uL (0.0-0.8); MONO % 5.9 % (0.0-5.0); NEUTROPHILS # 7.4 10^3/uL (1.8-7.7); NEUTROPHILS % 81.7 % (36.0-66.0); PLATELET COUNT, AUTOMATED 254 10^3/uL (150-450); RED CELL DISTRIBUTION WIDTH 13.9 % (11.5-14.5)
[2016-12-28 08:00] VITALS: BP 106/70
[2016-12-28] MEDS ORDERED: OXYC1TAB23 PO (08:02)
[2016-12-28] MEDS ORDERED: ONDA4TAB6 PO (08:03)
[2016-12-28] MEDS ORDERED: ENOXAPARIN 80 MG/0.8 ML SYRINGE (J1650) SC SCH (09:00)
[2016-12-28] MEDS ORDERED: OMEPRAZOLE 20 MG CAP PO SCH (09:00)
[2016-12-28] MEDS ORDERED: PROPRANOLOL 10 MG TAB PO SCH (09:00)
[2016-12-28 09:50] VITALS: BP 106/70
== END 2016-12-28 10:45 | disposition home or self-care (01) ==
LOC: M SDC 11:41 → M PED 21:32 → M SDC 12-28 10:45
PROVIDERS: ATTEND Obstetrics & Gynecology
DX: R10.2 Pelvic and perineal pain (principal); N84.0 Polyp of corpus uteri; N83.11 Corpus luteum cyst of right ovary; N83.12 Corpus luteum cyst of left ovary; N83.8 Other noninflammatory disorders of ovary, fallopian tube and broad ligament; Z95.2 Presence of prosthetic heart valve; M32.10 Systemic lupus erythematosus, organ or system involvement unspecified; K21.9 Gastro-esophageal reflux disease without esophagitis; Z79.01 Long term (current) use of anticoagulants; Z79.899 Other long term (current) drug therapy; Z88.0 Allergy status to penicillin; Z88.8 Allergy status to other drugs, medicaments and biological substances
CPT/HCPCS: 36415; 58571; 80307; 82565; 84702; 85025; 85027; 85610; 85730; 86850; 86900; 86901; 88307; 96372; G0480; J0690; J1100; J1170; J1650; J1885; J2175; J2250; J2405; J2710; J2765; J3010; Q9968

== ENCOUNTER → 2017-01-23 | Outpatient (CLI) | payer MEDICARE, MEDICAID ==
[~2017-01-23] MED LIST changes: +ESOM0.1C PO; +ONDA4TAB6 PO
== END ==
LOC: M PAIN 11:00
PROVIDERS: ATTEND Nurse Practitioner Family
DX: M79.7 Fibromyalgia (principal); M32.9 Systemic lupus erythematosus, unspecified; M06.09 Rheumatoid arthritis without rheumatoid factor, multiple sites; I10 Essential (primary) hypertension; E55.9 Vitamin D deficiency, unspecified; Z95.2 Presence of prosthetic heart valve; Z79.891 Long term (current) use of opiate analgesic; Z79.899 Other long term (current) drug therapy; Z88.0 Allergy status to penicillin; Z88.8 Allergy status to other drugs, medicaments and biological substances

== ENCOUNTER → 2017-04-10 | Outpatient (CLI) | payer MEDICARE, MEDICAID | LOC: M PAIN 11:30 | DX: M79.7 Fibromyalgia (principal); M32.9 Systemic lupus erythematosus, unspecified; M06.09 Rheumatoid arthritis without rheumatoid factor, multiple sites; F41.9 Anxiety disorder, unspecified; K21.9 Gastro-esophageal reflux disease without esophagitis; I10 Essential (primary) hypertension; Z95.4 Presence of other heart-valve replacement; Z79.899 Other long term (current) drug therapy; Z79.891 Long term (current) use of opiate analgesic; Z88.0 Allergy status to penicillin; Z88.8 Allergy status to other drugs, medicaments and biological substances | CPT/HCPCS: G0463 ==

== ENCOUNTER → 2017-06-26 | Outpatient (CLI) | payer MEDICARE, MEDICAID | LOC: M PAIN 10:30 | DX: M79.7 Fibromyalgia (principal); M32.9 Systemic lupus erythematosus, unspecified; M06.09 Rheumatoid arthritis without rheumatoid factor, multiple sites; F41.9 Anxiety disorder, unspecified; E55.9 Vitamin D deficiency, unspecified; G43.909 Migraine, unspecified, not intractable, without status migrainosus; I10 Essential (primary) hypertension; Z79.01 Long term (current) use of anticoagulants; Z79.891 Long term (current) use of opiate analgesic; Z79.899 Other long term (current) drug therapy; Z88.0 Allergy status to penicillin; Z88.8 Allergy status to other drugs, medicaments and biological substances | CPT/HCPCS: G0463 ==

== ENCOUNTER → 2017-09-24 | Outpatient (CLI) | payer MEDICARE, MEDICAID | LOC: M PAIN 13:00 | DX: M79.7 Fibromyalgia (principal); M32.9 Systemic lupus erythematosus, unspecified; F41.9 Anxiety disorder, unspecified; E55.9 Vitamin D deficiency, unspecified; G43.909 Migraine, unspecified, not intractable, without status migrainosus; I10 Essential (primary) hypertension; M06.9 Rheumatoid arthritis, unspecified; Z79.01 Long term (current) use of anticoagulants; Z79.899 Other long term (current) drug therapy; Z88.0 Allergy status to penicillin; Z88.8 Allergy status to other drugs, medicaments and biological substances; Z95.2 Presence of prosthetic heart valve | CPT/HCPCS: G0463 ==

== ENCOUNTER → 2018-01-21 | Outpatient (CLI) | payer MEDICARE, MEDICAID | LOC: M PAIN 13:30 | DX: M79.7 Fibromyalgia (principal); M32.9 Systemic lupus erythematosus, unspecified; G43.909 Migraine, unspecified, not intractable, without status migrainosus; I10 Essential (primary) hypertension; M06.9 Rheumatoid arthritis, unspecified; E55.9 Vitamin D deficiency, unspecified; F41.9 Anxiety disorder, unspecified; Z79.01 Long term (current) use of anticoagulants; Z79.899 Other long term (current) drug therapy; Z88.0 Allergy status to penicillin; Z88.8 Allergy status to other drugs, medicaments and biological substances; Z95.2 Presence of prosthetic heart valve | CPT/HCPCS: G0463 ==

== ENCOUNTER → 2018-01-28 | Outpatient (REF) | payer MEDICARE, MEDICAID ==
[2018-01-28 16:49] LABS: BLOOD UREA NITROGEN 19 MG/DL (7-18); CHLORIDE LEVEL 104 MEQ/L (98-107); CREATININE FOR GFR 0.82 MG/DL (0.55-1.30); GLOMERULAR FILTRATION RATE > 60.0 (>51); GLUCOSE, FASTING 78 MG/DL (70-100); POTASSIUM SERUM 3.8 MEQ/L (3.5-5.1); SODIUM LEVEL 142 MEQ/L (136-145)
[2018-01-28 16:50] LABS: ALBUMIN 4.2 GM/DL (3.2-5.2); ALKALINE PHOSPHATASE 67 U/L (45-117); ALT/SGPT 28 U/L (12-78); ANION GAP 6 MEQ/L (8-16); AST/SGOT 24 U/L (7-37); BILIRUBIN,TOTAL 0.6 MG/DL (0.2-1.0); CALCIUM LEVEL 9.4 MG/DL (8.5-10.1); CARBON DIOXIDE LEVEL 32 MEQ/L (21-32); CHOLESTEROL LEVEL 196 MG/DL (<200); HDL CHOLESTEROL 70 MG/DL (>40); LDL CHOLESTEROL 93 MG/DL (<100); NON-HDL-C 126 MG/DL; TRIGLYCERIDES LEVEL 167 MG/DL (<150)
[2018-01-31 00:07] LABS: VITAMIN D 1,25 DIHYDROXY 35.8 pg/mL (19.9-79.3)
== END ==
LOC: M SFHCCLAY 12:05
DX: E78.2 Mixed hyperlipidemia (principal); E55.9 Vitamin D deficiency, unspecified
CPT/HCPCS: 80053

== ENCOUNTER → 2018-05-30 | Outpatient (REF) | payer MEDICARE, MEDICAID ==
[~2018-05-30] MED LIST changes: +FOLI1TAB11 PO; -FOLI1TAB4 PO; +LOSA25TA14 PO; -LOSA25TA8 PO; +METH2.5T48 PO; -METH2.5TA PO; +REQU0.5T PO; -REQU1TAB15 PO; +TIZA2CAP PO; -TIZA2CAP3 PO; +TRAZ-160 PO; -TRAZ50TA11 PO
[2018-05-30 17:22] LABS: ALBUMIN 4.4 GM/DL (3.2-5.2); ALT/SGPT 27 U/L (12-78); BILIRUBIN,TOTAL 0.5 MG/DL (0.2-1.0); BLOOD UREA NITROGEN 21 MG/DL (7-18); C REACTIVE PROTEIN QUANTITATIV < 0.30 MG/DL (0.00-0.30); CALCIUM LEVEL 9.3 MG/DL (8.5-10.1); CARBON DIOXIDE LEVEL 28 MEQ/L (21-32); CHLORIDE LEVEL 103 MEQ/L (98-107); CREATININE FOR GFR 0.79 MG/DL (0.55-1.30); GLOMERULAR FILTRATION RATE > 60.0 (>51); GLUCOSE, FASTING 101 MG/DL (70-100); POTASSIUM SERUM 4.6 MEQ/L (3.5-5.1); SODIUM LEVEL 139 MEQ/L (136-145); THYROID STIMULATING HORMONE 0.422 uIU/ML (0.358-3.740); THYROXINE (T4) 9.3 UG/DL (4.5-12.0); TOTAL PROTEIN 7.3 GM/DL (6.4-8.2)
[2018-05-30 18:56] LABS: TOTAL T3 79.9 NG/DL (60.0-181.0)
== END ==
LOC: M SFHCCLAY 12:12
PROVIDERS: ATTEND Family Medicine
DX: R53.83 Other fatigue (principal); E55.9 Vitamin D deficiency, unspecified; M79.7 Fibromyalgia; M32.9 Systemic lupus erythematosus, unspecified
CPT/HCPCS: 80053; 82652; 84436; 84443; 84480; 86140; G0463

== ENCOUNTER → 2018-06-26 | Outpatient (CLI) | payer MEDICARE, MEDICAID ==
--- NOTE | 2018-06-27 00:30 | ECWPNPC ---
PATIENT NAME: KASIA CADE : 1965 GENDER: FEMALE VISIT DATE: 06/26/2018 DISCHARGE DATE: 06/26/18 1545 VISIT LOCKED DATE TIME: PHYSICIAN: RAMIN HUSAIN RESOURCE: RAMIN HUSAIN REASON FOR APPOINTMENT 1. 4 MONTHS, SW PT HISTORY OF PRESENT ILLNESS HISTORY OF PRESENT ILLNESS: PAIN THE PATIENT DESCRIBES THE PAINDURING THE LAST MONTH SEVERITY - PAIN SCORE OF6/10 LOCATIONSCERVICAL, UPPER BACK, MID BACK, LUMBAR, RIGHT SHOULDER, LEFT SHOULDER, RIGHT HIP, LEFT HIP 52 YR OLD FEMALE HERE FOR F/U ON GENERALIZED PAIN AND FIBROMYALGIA. SHE REPORTS HER PAIN 6/10. SHE DESCRIBES PAIN ACHY AND MAINLY OVER HER JOINTS.SHE IS UNDER CARE OF RHEUMATOLOGY AND BEING WORKED UP FOR LUPUS.SHE DENIES, FEVER, CHILLS AND WEIGHT LOSS.SHE HAS BEEN BEEN COMPLAINING OF MEMORY LOSS AND BEING FORGETFUL. SHE WOULD LIKE A REFERRAL TO A [facility]IN CLINIC [facility] FALL RISK SCREENING: SCREENING :NO FALLS REPORTED IN THE LAST YEAR CURRENT MEDICATIONS TAKING VITAMIN E 400 UNIT CAPSULE 1 CAPSULE ORALLY ONCE A DAY TAKING CETIRIZINE HCL 10 MG TABLET 1 TABLET NEEDED ORALLY ONCE A DAY TAKING LOSARTAN POTASSIUM 50 MG TABLET 1 TABLET ORALLY ONCE DAILY TAKING MAGNESIUM 400 MG TABLET 1 TABLET WITH A MEAL ORALLY BID TAKING WARFARIN SODIUM 5 MG TABLET 1 TABLET ORALLY ONCE A DAY TAKING PROPRANOLOL HCL 10 MG TABLET 1 TABLET ORALLY TWICE A DAY TAKING LYSINE 500 MG TABLET ORALLY TWICE DAILY TAKING MELOXICAM 15 MG TABLET 1 TABLET ORALLY ONCE A DAY TAKING FOLIC ACID 1 MG TABLET 1 TABLET ORALLY ONCE A DAY TAKING VITAMIN D3 ULTRA STRENGTH 5000 UNIT CAPSULE 1 CAPSULE ORALLY ONCE A DAY TAKING VITAMIN B-6 100 MG TABLET 1 TABLET ORALLY TWICE A DAY TAKING PLAQUENIL 200 MG TABLET 1 TABLET WITH FOOD OR MILK ORALLY TWICE A DAY TAKING METHOTREXATE 2.5 MG TABLET 7 TABS ORALLY WEEKLY ON SUN TAKING COLCHICINE 0.6 MG TABLET 1 TABLET ORALLY ONCE A DAY TAKING VOLTAREN 1 % GEL 2 GRAMS TRANSDERMAL DIRECTED TAKING TRAMADOL HCL 50 MG TABLET 1-2 TABLET NEEDED ORALLY EVERY 4 HOURS NEEDED MDD6 TAKING PERCOCET 5-325 MG TABLET 1 TABLET NEEDED ORALLY EVERY 6-8 HRS PRN PAIN MDD=3 TAKING NEXIUM 40 MG CAPSULE DELAYED RELEASE 1 CAPSULE ORALLY ONCE A DAY TAKING PREDNISONE 10 MG TABLET 1 TABLET ORALLY ONCE A DAY TAKING AMPHETAMINE-DEXTROAMPHET ER 30 MG CAPSULE EXTENDED RELEASE 24 HOUR 1 CAPSULE IN THE MORNING ORALLY ONCE A DAY MDD #1 TAKING TRAZODONE HCL 100 MG TABLET 1/2 OR 1 TABLET AT BEDTIME NEEDED ORALLY BEFORE BEDTIME TAKING ROPINIROLE HCL 0.5 MG TABLET 2 ORALLY QHS NOT-TAKING MULTIVITAMINS - CAPSULE ORALLY NOT-TAKING ACIDOPHILUS CAPSULE ORALLY DAILY NOT-TAKING PENLAC 8 % SOLUTION 1 APPLICATION TO AFFECTED AREA EXTERNALLY ONCE A DAY MEDICATION LIST REVIEWED AND RECONCILED WITH THE PATIENT PAST MEDICAL HISTORY ANXIETY FIBROMYALGIA GERD VITAMIN D DEFICIENCY AORTIC REGURGITATION- POST VALVE REPLACEMENT MIGRAINE HEADACHES HTN RHEUMATOID ARTHRITIS LUPUS ALLERGIES PENICILLIN (FOR ALLERGIES USE ONLY): RASH - ALLERGY KEPPRA: NAUSEA/VOMITING - ALLERGY SURGICAL HISTORY 05/2005 AORTIC VALVE REPLACEMENT-MECHANICAL 01/2010 LAPROSCOPY CHOLECYSTECTOMY D & C 2013 TONSILLECTOMY WISDOM TEETH REMOVAL CARPAL TUNNEL BOTH WRISTS COLONOSCOPY- NORMAL 2013 D & C 03/2016 HYSTERECTOMY 12/2016 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 1DAUGHTER(S) - HEALTHY. SOCIAL HISTORY GENERAL: TOBACCO USE ARE YOU A: NONSMOKER . ALCOHOL SCREENING DID YOU HAVE A DRINK CONTAINING ALCOHOL IN THE PAST YEAR?YES HOW OFTEN DID YOU HAVE SIX OR MORE DRINKS ON ONE OCCASION IN THE PAST YEAR?NEVER (0 POINTS) HOW MANY DRINKS DID YOU HAVE ON A TYPICAL DAY WHEN YOU WERE DRINKING IN THE PAST YEAR?1 OR 2 (0 POINTS) HOW OFTEN DID YOU HAVE A DRINK CONTAINING ALCOHOL IN THE PAST YEAR?MONTHLY OR LESS (1 POINT) POINTS1 INTERPRETATIONNEGATIVE RECREATIONAL DRUG USE DRUG USE?NO CAFFEINE CAFFEINE USE?YES HOW OFTEN AND HOW MUCH? ONE COFFEE DAILY SEXUAL HX HAD SEX IN THE LAST 12 MONTHS (VAGINAL, ORAL, OR ANAL)?NO HAVE YOU EVER HAD AN STD?NO HIV / HEP-C SCREENING HIV TEST OFFERED TO PATIENT:YES DATE OFFERED:05/30/2018 TEST ACCEPTED:NO HEP-C TEST OFFERED TO PATIENT:YES DATE OFFERED:05/30/2018 REASON:PATIENT DECLINED TEST ACCEPTED:NO REASON:PATIENT DECLINED BROCHURE PROVIDED TO PATIENTNO CHRISTIANITY [id number] CHEONDOISM NO HOAHAOISM BELIEFS THAT WOULD IMPACT HEALTH CARE. LANGUAGE LANGUAGES SPOKEN:UZBEK LEARNING BARRIERS / SPECIAL NEEDS CHANGE FROM LAST VISIT?NO 01/28/18 BARRIERS TO LEARNING?NO HEARING IMPAIRED?NO VISION IMPAIRED?NO COGNITIVELY IMPAIRED?NO READINESS TO LEARN?YES LEARNING PREFERENCES?NO LEARNING CAPABILITIES PRESENT?YES EMOTIONAL BARRIERS?NO SPECIAL DEVICES?NO LABOR ARBITRATOR HEARING OFFICE NEEDED?NO OCCUPATION: UNEMPLOYED. DIET: REGULAR. EXERCISE: NO REGULAR EXERCISE. MARITAL STATUS: SINGLE. OTHERS AT HOME: CHILD. NEW PATIENT PAIN DIARY TODAY'S VISITNOTES FROM 0-10, WHAT LEVEL IS YOUR PAIN TODAY?7 PAIN CLINIC PFS, CLERGY, PUBLIC HEALTH REFERRALS PFS REFERRAL NEEDED?NO CLERGY REFERRAL NEEDED?NO PUBLIC HEALTH REFERRAL NEEDED?NO WAS THE PROVIDER NOTIFIED OF ANY PERTINENT INFO?NO HAS THE PATIENT BEEN EDUCATED REGARDING HIS/HER PLAN OF CARE?YES HAS THE PATIENT BEEN EDUCATED REGARDING PAIN, THE RISK FOR PAIN, THE IMPORTANCE OF EFFECTIVE PAIN MANAGEMENT, AND THE PAIN ASSESSMENT PROCESS?YES ADVANCE DIRECTIVE ADVANCE DIRECTIVE DISCUSSED WITH PATIENT:YES DECLINED HOSPITALIZATION/MAJOR DIAGNOSTIC PROCEDURE RELATED TO SURGERY AND CHILDBIRTH REVIEW OF SYSTEMS REVIEWED BY: PROVIDER: . CONSTITUTIONAL: ANY CHANGE IN YOUR MEDICAL CONDITION? NO . CHILLS NO . FEVER NO . INFECTION: DO YOU HAVE NEW INFECTIONS? NO . DO YOU HAVE HISTORY OF MRSA? NO . MUSCULOSKELETAL: ANY NEW PATTERNS OF PAIN OR NUMBNESS? NO . GASTROENTEROLOGY: ANY NEW CHANGE IN BOWEL CONTROL? NO . GENITOURINARY: ANY NEW CHANGE IN BLADDER CONTROL? NO . IS THERE A CHANCE YOU COULD BE ? NO . HEMATOLOGY/LYMPH: DO YOU TAKE ANY BLOOD THINNERS? (FOR EXAMPLE- COUMADIN, PLAVIX, AGGRENOX, PLATEL, PRADAXA, OR XARELTO) YES, COUMADIN . WHEN WAS YOUR LAST DOSE? DATE: TIME: . NEUROLOGY: HAVE YOU FALLEN IN THE PAST 12 MONTHS? NO . ANY NEW EXTREMITY NUMBNESS OR WEAKNESS? NO . PATIENT COMPLAINING OF MEMORY . CARDIOLOGY: DO YOU HAVE A PACEMAKER OR DEFIBRILLATOR? YES, LOOP RECORDER . RESPIRATORY: HAVE YOU BEEN SICK IN THE PAST WEEK? NO . FEVER NO . FLU LIKE SYMPTOMS? NO . COUGH NO . INTEGUMENTARY: DO YOU HAVE ANY RASHES OR OPEN SORES? NO . ALLERGIC/IMMUNO: ARE YOU ALLERGIC TO IV DYE? NO . ANY NEW ALLERGIES? NO . PSYCHIATRIC: DO YOU HAVE THOUGHTS OF HURTING YOURSELF OR SOMEONE ELSE? NO . ARE YOU ABUSED, NEGLECTED, OR IN AN UNSAFE ENVIRONMENT? NO . ENDOCRINOLOGY: ARE YOU DIABETIC? NO . OTHER: DO YOU NEED ANY PRESCRIPTIONS? YES, PERCOSET . IF YES, PLEASE LIST: ____ . ANY NEW PROBLEMS WITH YOUR MEDICATIONS? NO . WHEN DID YOU LAST EAT? ____ . WHEN DID YOU LAST DRINK? ____ . WHAT DID YOU LAST DRINK? ____ . NAME OF PERSON DRIVING YOU HOME? ____ . DO YOU HAVE ANY OTHER QUESTIONS OR CONCERNS NO . VITAL SIGNS WT 150.8 LBS, HT 5'4", BMI 25.88 INDEX, BP 143/84 MM HG, HR 76 /MIN, RR 16 /MIN, TEMP 97.4 F, OXYGEN SAT % 96%, NA INITIALS AW 1455, REVIEWED BY: EM. EXAMINATION GENERAL EXAMINATION: GENERAL APPEARANCE:NO ACUTE DISTRESS, WELL NOURISHED AND HYDRATED. PSYCHAPPROPRIATE MOOD AND AFFECT . LUNGS:CLEAR TO AUSCULTATION BILATERALLY, NO WHEEZES, RHONCHI, RALES. HEART:NO MURMURS, REGULAR RATE AND RHYTHM. MUSCULOSKELETAL: ELICITED WITH PALPATION OVER LUMBAR PARAVERTEBRAL MUSCLES AND INTO THE SECRUM. RESTRICTION OF ROM IN THIS AREA. ASSESSMENTS FIBROMYALGIA - M79.7 (PRIMARY) GENERALIZED PAIN - R52 USE OF OPIATES FOR THERAPEUTIC PURPOSES - Z79.899 MYALGIA - M79.1 MEMORY CHANGE - R41.3 TREATMENT FIBROMYALGIA CONTINUE PERCOCET TABLET, 5-325 MG, 1 TABLET NEEDED, ORALLY, EVERY 6-8 HRS PRN PAIN MDD=3, 30 DAYS, 90, REFILLS 0 GENERALIZED PAIN CLINICAL NOTES: PATIENT ADVISED I WILL GET A REFERRAL COMPLETED FOR HER TO GO TO [facility] IN [place], BUT SHE WILL REMAIN UNDER OUR CARE UNTIL SHE HAS APPT THERE. MEMORY CHANGE CLINICAL NOTES: PATIENT ADVISED TO F/U WITH PCP TO GET REFERRAL TO A NUEROLOGIST OR CONTACT PREVIOUS NEURO TO DISCUSS CHANGES IN HER MEMORY. PROCEDURE CODES FA211 ESTABILISHED PATIENT [facility] CHARGE DISPOSITION & COMMUNICATION FOLLOW UP PRN ELECTRONICALLY SIGNED BY YOLANDA COX ON 06/26/2018 AT 04:32 PM EDT DISCLAIMER : THIS IS A VISIT SUMMARY EXTRACTED FROM THE [facility] CHART. IT IS NOT A COPY OF THE [employer] PROGRESS NOTE. YAMILET
== END ==
LOC: M PAIN 14:45
PROVIDERS: ATTEND Nurse Practitioner Family
DX: M79.7 Fibromyalgia (principal); R52 Pain, unspecified; M79.10 Myalgia, unspecified site; R41.3 Other amnesia; Z86.59 Personal history of other mental and behavioral disorders; K21.9 Gastro-esophageal reflux disease without esophagitis; E55.9 Vitamin D deficiency, unspecified; Z95.4 Presence of other heart-valve replacement; G43.909 Migraine, unspecified, not intractable, without status migrainosus; M06.09 Rheumatoid arthritis without rheumatoid factor, multiple sites; Z86.2 Personal history of diseases of the blood and blood-forming organs and certain disorders involving the immune mechanism; Z95.818 Presence of other cardiac implants and grafts; Z88.0 Allergy status to penicillin; Z88.8 Allergy status to other drugs, medicaments and biological substances; Z79.01 Long term (current) use of anticoagulants; Z79.52 Long term (current) use of systemic steroids; Z79.899 Other long term (current) drug therapy